=== PATIENT | male | born 1960 | race Caucasian/White ===

== ENCOUNTER → 2019-02-04 | Outpatient (CLI) | payer BC ==
[~2019-02-04] VITALS: Ht 175.3 cm; Wt 69.6 kg
[~2019-02-04] MED LIST: ADVIL LIQUI-GE200 MG PO; ALEVE220 MG PO; GLUCOSAMINE CH1 EAC7 PO; MULTIVITAMINS PO; NAPROSYN500 MG PO; NEURONTIN300 MG PO; NORCO 10-325 T1 EACH PO; ORPHENADRINE C100 M2 PO
[2019-02-04 09:31] VITALS: BP 137/85
--- NOTE | 2019-02-04 09:44 | NUR ---
Pain Clinic Assessment: 1. History of Osteoarthritis: BACK History of Rheumatoid Arthritis: 2. Height: 5 ft. 9 in. 175.3 cm. Weight: 153.5 lb. oz. 69.627 kg. Patient's BMI: 22.7 3. Vital Signs: BP: 137/85 Pulse: 82 Resp: 16 Temp: 02 Sat: 95 ECG Mon: 4. Pain Intensity: 10 5. Fall Risk: Dizziness: N Needs help standing or walking: N Fallen in the last 3 months: N Fall risk comments: 6. Patient on Blood Thinner: None 7. History of Hypertension: N 8. Opioid Therapy greater than 6 weeks: N Opiate Contract Signed: 9. Risk Assessment Tool Provided: LOW RISK 0/3 10. Functional Assessment Tool: 63/70 11. Recreational Drug Use: Never Drug Type: Tobacco Use: Never Smoker Tobacco Type: Amount or Packs/day: How Many Years: Alcohol Use: Yes Frequency: Monthly Quant: 2
--- NOTE | 2019-02-18 08:26 | HPC ---
[facility] [place] [address] PAIN MANAGEMENT CONSULTATION Name: ELDA BUENO Room #: REG [facility] Aniket#: [id number] Admission: 02/04/19 Attend Phys: Panfilo Manuel MD Discharge: Date of : 60 Report #: [id number] THIS REPORT FOR: //name// CC: Panfilo Hong DATE OF SERVICE: 02/04/2019 CHIEF COMPLAINT: Low back pain. HISTORY OF PRESENT ILLNESS: The patient is a 58-year-old gentleman who has been referred to the pain clinic for evaluation. The patient has for a number of years, had pain involving his back. He describes it as stabbing in his hip and in the lower back there is pain as well. Pain is made worse with prolonged standing or walking. Sitting improves the pain condition. He describes it as constant, stabbing and rates it today as a 10/10. On average, it is an 8/10. He states that his pain began in about 09/2016. He notes some changes in his posture and in his low back area. He has a history of spinal stenosis in the low back area. He has had laminotomy. He did try a spinal cord stimulator. He only got about 30% benefit from it. It was not felt this was sufficient pain relief to implant. Lumbar laminectomy was performed in 03/2013. He denies any bowel or bladder problems. No problems with incontinence. ALLERGIES: No known drug allergies. CURRENT MEDICATIONS: Naprosyn 220 mg q. 8 hours p.r.n., Advil 200 mg t.i.d. p.r.n., orphenadrine 100 mg, hydrocodone 10/325 one p.o. t.i.d. PAST MEDICAL HISTORY: Back pain, scoliosis. PAST SURGICAL HISTORY: Knee surgery in 2000, elbow surgery in 2003, back surgery in 2012, hernia repair 2007, and back surgery 2018. SOCIAL HISTORY: He works in sales. He is working at this juncture. REVIEW OF SYSTEMS: Generally good health, fatigue, weakness, wears glasses, otherwise unremarkable. LABORATORY DATA: CT of the lumbar spine dated 08/2018. IMPRESSION: 1. Lumbar scoliosis and chronic degenerative changes. 2. Left L2-L3 lateral recess stenosis. 3. ____ L3-L4 laminotomy with bone defect in the L3 spinous process. 4. Moderate L3-L4 spinal stenosis with right lateral recess stenosis and moderate left neural [place] [address] PAIN MANAGEMENT CONSULTATION Name: ELDA BUENO Room #: REG CLI JessicaRanjeetDorotaRanjeet#: [id number] Admission: 02/04/19 Attend Phys: Panfilo Manuel MD Discharge: Date of : 60 Report #: [id number] 5. Moderate L4-L5 spinal stenosis and right lateral recess stenosis. 6. Right L5-S1 lateral recess stenosis. 7. Myelogram on 08/12/2018. Chronic degenerative changes throughout the lumbar spine, mild scoliosis. 8. Prominent right lateral indentation of the dural sac at L3-L4 with mild anterior indentation. 9. Prominent lateral indentation of the dural sac bilaterally at L4-L5 with mild anterior indentation. 10. Mild L4-L5 spinal stenosis. 11. Anterior indentation of the dural sac at L5-S1 and reduced contrast filling of the nerve root sheath bilaterally. 12. Thoracic spine, AP, lateral. 13. Bilateral SI trigger points. PAIN CLINIC ASSESSMENT AND PQRS: 1. History of osteoarthritis. The patient has arthritic changes in his back. He is not being treated for rheumatoid arthritis. 2. Height 5 feet 9 inches, weight 153 pounds, BMI is 22.7. 3. Vital signs: Blood pressure 137/85, pulse 82, respiratory rate 16, room air saturation 95%. 4. Pain intensity 10/10. 5. Fall history: The patient has not fallen in the last 3 months. 6. Blood thinner. The patient is not being treated with blood thinning medication. 7. Hypertension. The patient is not being treated for hypertension. 8. Opioids greater than 6 weeks. The patient received medication from one source, the pain clinic or one source his primary physician. 9. Risk assessment tool, 0/3l; low for opioid use. 10. Functional assessment tool 63/70. 11. Recreational drug use. The patient denies. 12. Tobacco: The patient has never smoked. 13. Alcohol: The patient occasionally drinks about 2 alcoholic beverages monthly. PHYSICAL EXAMINATION: GENERAL: The patient is a well-developed, well-nourished white male. Appears his stated age. He is alert and oriented x 3. His affect is appropriate. Speech is fluent. HEENT: Normocephalic, atraumatic. Extraocular eye muscles intact. Sclerae nonicteric. Mucous membranes are moist. NECK: Without adenopathy or JVD. EXTREMITIES: Upper extremity muscle strength judged to be 5/5 for the major muscle groups in the upper extremity. HEART: Clear to auscultation. ABDOMEN: Nontender. MUSCULOSKELETAL: The patient has scoliosis of the spine. There is decreased [facility] [address] [place] [address] PAIN MANAGEMENT CONSULTATION Name: ELDA BUENO Room #: REG BRITTANY Marcial#: [id number] Admission: 02/04/19 Attend Phys: Panfilo Manuel MD Discharge: Date of : 60 Report #: [id number] strength in the left quad complains of some discomfort in his hips. There is change in the hip position, given patient's scoliosis. Impression: Chronic back pain with history of lumbar post-laminectomy syndrome. Back and bilateral hip pain. RECOMMENDATIONS: We discussed treatment options with the patient. The patient has some pain and discomfort in the mid back area. We discussed the treatment options with the patient. We will proceed with steroid injection into the left as well as the right SI joint areas. The patient elects to proceed. PROCEDURE NOTE: The patient was positioned on the table. His feet were perpendicular to the table. His back was then sterilely prepped with a chlorhexidine solution and allowed to dry. Trigger point was noted in the right posterior superior iliac spine area down near the lower back area. Near the buttocks. A trigger point was identified. A 25-gauge needle was then advanced into this area. The patient states that this did reproduce a component of his discomfort. Aspiration was negative. A total of 40 mg Depo-Medrol and 20 mg triamcinolone was injected into this area. This was also injected with 5 mL of 0.5% bupivacaine. The contralateral side was treated in a like fashion. Trigger point was noted in the area of the gluteus anastasia near the SI area. Trigger point was identified. A 25-gauge needle was then advanced into the area. Aspiration was negative. A total of 40 mg Depo-Medrol and 20 mg triamcinolone was injected. A 5 mL of 0.5% bupivacaine was injected. The patient remained in the pain clinic for an appropriate amount of time. He will follow up in the near future. We would like to thank you for letting us participate in his care. We hope he continues to improve. <ELECTRONICALLY SIGNED> By: Panfilo Manuel MD 02/18/19825 [id number] 23 Panfilo Manuel MD /nt
== END | disposition home or self-care (01) ==
LOC: PAIN 06:51
DX: M54.5 Low back pain (principal); M79.18 Myalgia, other site; M48.061 Spinal stenosis, lumbar region without neurogenic claudication; Z98.890 Other specified postprocedural states; Z79.891 Long term (current) use of opiate analgesic; Z79.899 Other long term (current) drug therapy

== ENCOUNTER → 2019-03-11 | Outpatient (CLI) | payer BC ==
[~2019-03-11] VITALS: Ht 175.3 cm; Wt 68.4 kg
[2019-03-11 10:16] VITALS: BP 113/80
--- NOTE | 2019-03-11 10:29 | NUR ---
Pain Clinic Assessment: 1. History of Osteoarthritis: BACK History of Rheumatoid Arthritis: 2. Height: 5 ft. 9 in. 175.3 cm. Weight: 150.8 lb. oz. 68.402 kg. Patient's BMI: 22.3 3. Vital Signs: BP: 113/80 Pulse: 77 Resp: 16 Temp: 02 Sat: 97 ECG Mon: 4. Pain Intensity: 8 AVG 5. Fall Risk: Dizziness: N Needs help standing or walking: N Fallen in the last 3 months: N Fall risk comments: 6. Patient on Blood Thinner: None 7. History of Hypertension: N 8. Opioid Therapy greater than 6 weeks: N Opiate Contract Signed: 9. Risk Assessment Tool Provided: LOW RISK 0/3 10. Functional Assessment Tool: 63/70 11. Recreational Drug Use: Never Drug Type: Tobacco Use: Never Smoker Tobacco Type: Amount or Packs/day: How Many Years: Alcohol Use: Yes Frequency: Quant:
--- NOTE | 2019-03-18 13:05 | HPC ---
[facility] [address] [place] [address] PAIN MANAGEMENT CONSULTATION Name: ELDA BUENO Room #: REG [facility] Kirby.#: [id number] Admission: 03/11/19 Attend Phys: Panfilo Manuel MD Discharge: Date of : 60 Report #: [id number] THIS REPORT FOR: //name// CC: Panfilo Hong DATE OF SERVICE: 03/11/2019 CHIEF COMPLAINT: Low back pain. It goes down into both hips and low back. HISTORY: The patient is a 58-year-old gentleman who has been followed in the pain clinic. For number of years he has had back pain. He has continued to experience pain in the low back area and has been experiencing some muscle weakness in the quadriceps area. Rates his pain today on average as an 8/10. Does have a history of spinal stenosis. He has undergone laminectomy. He was trialled on a spinal cord stimulator, only 30% benefit was achieved. He has returned today stating that he has noted improvement after the last injection, but continues to have pain, which is somewhat problematic. Pain is exacerbated with standing, walking or doing yard work. It improved somewhat with use of medications. ALLERGIES: No known drug allergies. CURRENT MEDICATIONS: Naprosyn 220 mg every 8 hours p.r.n., Advil 200 mg t.i.d. p.r.n., orphenadrine 100 mg, hydrocodone 10/325 one p.o. t.i.d. PAIN CLINIC ASSESSMENT/PQRS: 1. The patient is not being treated for rheumatoid arthritis. Does have some arthritic changes in his back. 2. Height 5 feet 9 inches, weight 150 pounds, BMI is 22.3. 3. Vital signs: Blood pressure 113/80, pulse 77, respiratory rate 16, room air saturation 97%. 4. Pain intensity 8/10. 5. Fall history: The patient has not fallen since we saw him last visit. 6. Blood thinner. The patient is not on a blood thinning medication. 7. Hypertension. The patient is not being treated for hypertension. 8. Opioids greater than 6 weeks. The patient receives medications from [facility] or his primary. 9. Risk assessment tool, low for opioid use. 10. Functional assessment tool 63/70. 11. Recreational drug use: The patient denies. 12. Tobacco: The patient does not smoke. 13. Alcohol: The patient occasionally drinks alcoholic beverages. PHYSICAL EXAMINATION: GENERAL: The patient is a well-developed, well-nourished [place] [address] PAIN MANAGEMENT CONSULTATION Name: ELDA BUENO Room #: REG [facility]#: [id number] Admission: 03/11/19 Attend Phys: Panfilo Manuel MD Discharge: Date of : 60 Report #: [id number] oriented x 3. Affect is appropriate. Speech is fluent. HEAD, EYES, EARS, NOSE, AND THROAT: Normocephalic, atraumatic. Extraocular eye muscles intact. Sclerae nonicteric. Mucous membranes are moist. NECK: Without adenopathy or JVD. Upper extremity muscle strength judged to be 5/5 for the major muscle groups in the upper extremity. HEART: Regular rate. LUNGS: Clear to auscultation. ABDOMEN: Nontender. The patient does have some scoliotic change in his back, some decreased strength in the left quadrant area. Has pain and discomfort in the lateral portion of his hips in the area near the gluteus anastasia and gluteus medius, this is on the left as well as the back area. IMPRESSION: 1. Chronic back pain. 2. History of laminectomy with post-laminectomy syndrome. 3. Bilateral hip pain. 4. Decreased muscle strength in the L3-L4 area with some decreased quad strength on the left. 5. Left knee pain. RECOMMENDATION: We discussed treatment options with the patient. The patient felt that he did glean benefit from the last injection. Still has pain, which is problematic and still rated at 8/10. He desires another injection in the back area to see if things would not continue to improve. We discussed the risks and benefits of the procedure. They include but are not limited to infection, worsening of pain, no improvement in pain, bleeding, nerve damage and the patient elects to proceed. PROCEDURE NOTE: The patient was assisted in getting on the examination table. He sat perpendicular to the table. A chair was placed under his feet for support. The patient's back was sterilely prepped in the left and right posterior superior iliac spine areas. We continued to palpate the area of the left posterior superior iliac spine area on the left near the gluteus anastasia and the latissimus dorsi was identified. A 25-gauge needle was then advanced into the area of discomfort. Aspiration was negative. The patient stated that this did reproduce a component of his pain. A total of 5 mL of 0.5% bupivacaine and 40 mg of Depo-Medrol and 20 mg of triamcinolone was injected. The patient tolerated the left side well. The patient's right side was palpated. The patient noted some pain and discomfort, which was primarily in the right low back area near the gluteus anastasia and lateral sacral area. This area was sterilely prepped with a chlorhexidine solution. A 25-gauge needle was then advanced into the area. The patient states this did reproduce his pain and discomfort. Aspiration was negative. A total of 40 mg Depo-Medrol and 20 mg of triamcinolone in conjunction with 6 mL of 0.5% bupivacaine was injected. The [address] [address] PAIN MANAGEMENT CONSULTATION Name: ELDA BUENO JOE [facility] [id number] Admission: 03/11/19 Attend Phys: Panfilo Manuel MD Discharge: Date of : 60 Report #: [id number] patient was then taken to the procedure area. He did note some weakening of his right gluteus anastasia musculature area. He was then taken to the recovery room where he remained for an appropriate amount of time. He will follow up in the future as needed. Two trigger points were injected, one on the left and the second on the right in the low back and buttocks area. We would like to thank you for letting us to participate in his care. <ELECTRONICALLY SIGNED> By: Panfilo Manuel MD 03/18/19 1305 [id number] Panfilo Manuel MD /SANDRO
== END | disposition home or self-care (01) ==
LOC: PAIN 06:52
DX: M79.18 Myalgia, other site (principal); M54.5 Low back pain; G89.29 Other chronic pain; M25.551 Pain in right hip; M25.552 Pain in left hip; M25.562 Pain in left knee; Z98.890 Other specified postprocedural states; Z79.899 Other long term (current) drug therapy; Z79.891 Long term (current) use of opiate analgesic

== ENCOUNTER → 2019-03-30 | Outpatient (CLI) | payer BC ==
[~2019-03-30] VITALS: Ht 175.3 cm; Wt 69.4 kg
[2019-03-30 13:36] VITALS: BP 126/83
--- NOTE | 2019-03-30 13:52 | NUR ---
Pain Clinic Assessment: 1. History of Osteoarthritis: BACK History of Rheumatoid Arthritis: 2. Height: 5 ft. 9 in. 175.3 cm. Weight: 153.0 lb. oz. 69.400 kg. Patient's BMI: 22.6 3. Vital Signs: BP: 126/83 Pulse: 72 Resp: 14 Temp: 02 Sat: 97 ECG Mon: 4. Pain Intensity: 6 5. Fall Risk: Dizziness: N Needs help standing or walking: Y Fallen in the last 3 months: Y Fall risk comments: 6. Patient on Blood Thinner: None 7. History of Hypertension: N 8. Opioid Therapy greater than 6 weeks: N Opiate Contract Signed: 9. Risk Assessment Tool Provided: LOW RISK 0/3 10. Functional Assessment Tool: 63/70 11. Recreational Drug Use: Never Drug Type: Tobacco Use: Never Smoker Tobacco Type: Amount or Packs/day: How Many Years: Alcohol Use: Yes Frequency: Quant:
--- NOTE | 2019-04-19 21:49 | HPC ---
[facility] [address] [place] [address] PAIN MANAGEMENT CONSULTATION Name: ELDA BUENO Room #: REG [facility] Aniket#: [id number] Admission: 03/30/19 Attend Phys: Panfilo Manuel MD Discharge: Date of : 60 Report #: [id number] THIS REPORT FOR: //name// CC: Panfilo Hong DATE OF SERVICE: 03/30/2019 CHIEF COMPLAINT: "I was climbing some stairs and I noted my quad muscle on the right side has become weaker. I am having difficulty moving my right knee." HISTORY: The patient is a 58-year-old gentleman who has been seen in the pain clinic because of chronic pain. He has had chronic pain for a number of years. He has had back surgery. States that in the past, he talked with his surgeon. He was told that he probably could expect about 30% improvement from surgery at this juncture. Does have a history of spinal stenosis. He has undergone laminectomy. After the last surgery, he did note some weakness in the quad muscle on his left side. States that he was going up some stairs recently. Noticed pain and discomfort in his right leg and thigh. Noted some increased weakness in the right thigh. He is unable to sit in a chair and fully extend his knee. Has difficulty bearing weight on that extremity. He has been walking with use of a cane. He has returned to the pain clinic for evaluation. ALLERGIES: No known drug allergies. CURRENT MEDICATIONS: Naprosyn 220 mg q. 8 hours p.r.n., Advil 200 mg t.i.d. not part Orphenadrine 100 mg, hydrocodone 10/325 one p.o. t.i.d. PAIN CLINIC ASSESSMENT AND PQRS: 1. History of osteoarthritis, has had back surgery. The patient is not being treated for rheumatoid arthritis. 2. Height 5 feet 9 inches, weight 153 pounds, BMI is 22.6. 3. Vital signs: Blood pressure 126/83, pulse 72, respiratory rate 14, room air saturation 97%. 4. Pain intensity 10/18. 5. Fall history: The patient has not fallen, but has weakness in his legs and is walking with a crutch. 6. Blood thinner. The patient is not on a blood thinning medication. 7. Hypertension. The patient is not being treated for hypertension. 8. Opioids greater than 6 weeks. The patient receives medication from one source. 9. Risk assessment tool, low for opioid use. 10. Functional assessment tool 36/. 11. Recreational drug use: The patient denies. 12. Tobacco: The patient denies. 13. Alcohol: The patient drinks alcoholic beverages. [address] [address] PAIN MANAGEMENT CONSULTATION Name: ELDA BUENO JOE Room #: REG BRITTANY Marcial#: [id number] Admission: 03/30/19 Attend Phys: Panfilo Manuel MD Discharge: Date of : 60 Report #: [id number] PHYSICAL EXAMINATION: GENERAL: The patient is a well-developed, well-nourished white male. He is alert and oriented x 3. His affect is appropriate. Speech is fluent. HEENT: Normocephalic, atraumatic. Extraocular eye muscles intact. Sclerae nonicteric. Mucous membranes are moist. NECK: Without adenopathy or JVD. HEART: Regular rate. ABDOMEN: Nontender. The patient has a well-healed scar in the lower portion of his back. Has some scoliosis of his back. MUSCULOSKELETAL: The patient has some weakness in the left quad. He is able to sit and fully extend his left leg, but there is some weakness. He has noted some muscle bulk loss since the surgery a number of years ago. He has noted now pain and discomfort in the right quadriceps. He is unable to extend his leg against gravity. He is having some discomfort or difficulty in dorsiflexing his foot. IMPRESSION: 1. Acute onset of muscle weakness involving the right lower extremity appears to be affecting the L4 dermatomal distribution. The patient is unable to extend his quad. 2. History of lumbar laminectomy and post-laminectomy syndrome. 3. Bilateral hip pain. 4. Decreased muscle strength in the L3-L4 on the left side. 5. Left knee pain. RECOMMENDATION: We discussed treatment options with the patient. At this juncture, the patient has significant problems with muscle weakness on the right hand side. He appears to maybe have had a disk issue on the right side. It appears to have occurred quickly and significantly rendering his right quadriceps muscle quite inactive. We would recommend that the patient follow up with his neurosurgeon who has done a surgery in the past. We would recommend that he go and have an MRI. He states that [facility] We would recommend he go and do research and have this done so that the radiologist can compare his past images to his new. We explained to the patient the need to have this assessed early. Long periods of time without intervention may prove problematic and such that the patient will always have paresis involving that muscle. We would like to thank you for letting us participate in his care. We hope he finds a quick solution and get a rapid recovery from his situation. <ELECTRONICALLY SIGNED> By: Panfilo Manuel MD 04/19/19 [id number] MD antonia Manrique
== END ==
LOC: PAIN 10:15
DX: M96.1 Postlaminectomy syndrome, not elsewhere classified (principal); M25.551 Pain in right hip; M25.552 Pain in left hip; M25.562 Pain in left knee; M79.10 Myalgia, unspecified site; Z79.899 Other long term (current) drug therapy

== ENCOUNTER → 2019-04-13 | Outpatient (CLI) | payer BC ==
[~2019-04-13] VITALS: Ht 175.3 cm; Wt 70.2 kg
[2019-04-13 14:06] VITALS: BP 117/92
--- NOTE | 2019-04-13 14:29 | NUR ---
Pain Clinic Assessment: 1. History of Osteoarthritis: BACK History of Rheumatoid Arthritis: 2. Height: 5 ft. 9 in. 175.3 cm. Weight: 154.8 lb. oz. 70.217 kg. Patient's BMI: 22.8 3. Vital Signs: BP: 117/92 Pulse: 80 Resp: 16 Temp: 02 Sat: 96 ECG Mon: 4. Pain Intensity: 6 5. Fall Risk: Dizziness: N Needs help standing or walking: N Fallen in the last 3 months: Y Fall risk comments: 6. Patient on Blood Thinner: None 7. History of Hypertension: N 8. Opioid Therapy greater than 6 weeks: N Opiate Contract Signed: 9. Risk Assessment Tool Provided: LOW RISK 0/3 10. Functional Assessment Tool: 63/70 11. Recreational Drug Use: Never Drug Type: Tobacco Use: Never Smoker Tobacco Type: Amount or Packs/day: How Many Years: Alcohol Use: Yes Frequency: Quant:
--- NOTE | 2019-04-27 13:08 | HPC ---
[facility] [address] [place] [address] PAIN MANAGEMENT CONSULTATION Name: ELDA BUENO Room #: REG [facility]#: [id number] Admission: 04/13/19 Attend Phys: Panfilo Manuel MD Discharge: Date of : 60 Report #: [id number] THIS REPORT FOR: //name// CC: Panfilo Hong DATE OF SERVICE: 04/13/2019 CHIEF COMPLAINT: Low back pain that goes into the right leg. The patient also has some right quad weakness. He has been using crutches. He has returned today indicating that his pain was improved after the last injection. He has noticed some problems with weakness involving the right quadriceps area. States that he saw his surgeon. At this juncture, they did not feel that surgery was needed. He has returned today with hopes of undergoing a trigger point injection to the low back area to help control the pain and discomfort, which has been experiencing. He rates his pain as 6/10 today. ALLERGIES: No known drug allergies. CURRENT MEDICATIONS: Naprosyn 220 mg q. 8 hours, Advil 200 mg t.i.d., orphenadrine 100 mg, hydrocodone 10/325 one p.o. t.i.d. PHYSICAL EXAMINATION: MUSCULOSKELETAL: The patient has pain and discomfort in lower portion of his back. Two trigger point areas were noted. This is in the left and the right posterior superior iliac areas. Palpation in these areas can reproduce pain and discomfort, which he has been experiencing. IMPRESSION: 1. Bilateral trigger points in the posterior superior iliac spine area. 2. Left L2-L3 lateral recess stenosis. 3. Moderate L4-L5 spinal stenosis. Right lateral recess stenosis. 4. Right L5-S1 lateral stenosis. 5. Myelogram 08/12/2018, chronic degenerative changes throughout the lumbar spine, mild scoliosis. 6. Prominent lateral indentation of the dural sac bilaterally at L4-L5 with anterior indentation. 7. Thoracic spine complaint anterior and lateral. RECOMMENDATIONS: We discussed treatment options with the patient. Risks and benefits of injection were discussed. They include the possibility of infection, worsening of pain, nerve damage, increased pain and no improvement in pain. The patient elects to proceed. PROCEDURE NOTE: The patient was taken to the procedure area. He was then assisted in getting on examination table. His back was sterilely prepped with a [facility] [address] [place] [address] PAIN MANAGEMENT CONSULTATION Name: MYLESELDA [place] Room #: REG [facility]an[facility]etRanjeet#: [id number] Admission: 04/13/19 Attend Phys: Panfilo Manuel MD Discharge: Date of : 60 Report #: [id number] Betadine solution and allowed to dry. The right posterior superior iliac spine near the gluteus anastasia and latissimus dorsi was identified. The patient states this did reproduce a component of his discomfort. A 25-gauge needle was then used to anesthetize the area and the trigger point was identified. Aspiration was negative. Total of 80 mg Depo-Medrol was injected with 5 mL of 0.5% bupivacaine. The contralateral left side was treated in a like fashion. This area had been sterilely prepped. A trigger point was noted in the left posterior superior iliac spine area near the gluteus anastasia and latissimus dorsi. After the trigger point was noted. A 25-gauge needle was then advanced. Aspiration was negative. Total of 80 mg Depo-Medrol was injected. A total of 5 mL of 0.5% bupivacaine was injected. The patient tolerated the procedure well. He remained in the pain clinic for an appropriate amount of time. His pain score was 0 at the time of discharge. His muscle strength as it was prior to the injection. He remained in the pain clinic for appropriate amount of time. He will follow up in the future as needed. We would like to thank you for letting us participate in his care. We hope he continues to improve. <ELECTRONICALLY SIGNED> By: Panfilo Manuel MD 04/27/19 [id number] Panfilo Manuel MD /harshal
== END | disposition home or self-care (01) ==
LOC: PAIN 07:11
DX: M79.18 Myalgia, other site (principal); M48.061 Spinal stenosis, lumbar region without neurogenic claudication; M54.5 Low back pain; Z98.890 Other specified postprocedural states; Z79.891 Long term (current) use of opiate analgesic; Z79.899 Other long term (current) drug therapy

== ENCOUNTER → 2019-05-18 | Outpatient (CLI) | payer BC ==
[~2019-05-18] VITALS: Ht 175.3 cm; Wt 70.0 kg
--- NOTE | ~2019-05-18 | HPC ---
[facility] [address] [place] [address] PAIN MANAGEMENT CONSULTATION Name: ELDA BUENO Room #: REG BRITTANY Marcial#: [id number] Admission: 05/18/19 Attend Phys: Panfilo Manuel MD Discharge: Date of : 60 Report #: [id number] THIS REPORT FOR: //name// CC: Panfilo Hong DATE OF SERVICE: 05/18/2019 CHIEF COMPLAINT: Low back pain with pain in the low back area. HISTORY: The patient is a 58-year-old gentleman who has been seen in the pain clinic because of low back pain. He has been experiencing pain down in the lower portion of his back and down into the buttocks area. Has had a history of renal stones. He returns today because of pain in the low back area. Certain areas when palpated can reproduce this pain and discomfort. He denies any new trauma. He has continued to have some weakness in his lower extremities. This involves his quadriceps. Initially after his surgery, his left quadricep was weak. He has noted some continued weakness in the right quadricep. Denies any new trauma. He has returned today for injection in the low back area. He does have some myofascial pain. Trigger point injections in the past have been beneficial and he has returned today with the hopes of undergoing injections to the affected area today. ALLERGIES: No known drug allergies. CURRENT MEDICATIONS: Naprosyn 220 mg q. 8 hours, Advil 200 mg t.i.d. p.r.n., orphenadrine 100 mg, and hydrocodone 10/325 one p.o. t.i.d. PAIN CLINIC ASSESSMENT AND PQRS: 1. History of osteoarthritis. The patient has had back surgery. 2. Height 5 feet 9 inches, weight 154 pounds, BMI is 22.9. 3. Vital signs: Blood pressure 154/89, pulse 76, respiratory rate 14, room air saturation is 100%. 4. Pain intensity /10. 5. Fall history: The patient has not fallen since we saw him last. 6. Blood thinner. The patient is not on a blood thinning medication. 7. Hypertension. The patient is not being treated for hypertension. 8. Opioids greater than 6 weeks. 9. Risk assessment tool, low for opioid use. 10. Functional assessment tool 63/70. 11. Recreational drug use: The patient denies. 12. Tobacco: The patient has never smoked. 13. Alcohol: The patient occasionally drinks alcoholic beverages. PHYSICAL EXAMINATION: GENERAL: The patient is a well-developed, well-nourished white male. Appears [place] [id number] PAIN MANAGEMENT CONSULTATION Name: ELDA BUENO Room #: REG [facility] Kirby.#: [id number] Admission: 05/18/19 Attend Phys: Panfilo Manuel MD Discharge: Date of : 60 Report #: [id number] his stated age. He is alert and oriented x 3. His affect is appropriate. Speech is fluent. HEENT: Normocephalic, atraumatic. Extraocular eye muscles intact. Sclerae nonicteric. Mucous membranes are moist. NECK: Without adenopathy or JVD. ABDOMEN: Nontender. MUSCULOSKELETAL: Upper extremity muscle strength judged to be 5/5. The patient has a well-healed scar in the lower portion of his back. Does have some asymmetry in his lumbar area with an elevation of the right iliac area greater than left. Palpation in the area of the posterior superior iliac spine on the left and right, both cause some recurrence of pain and discomfort. IMPRESSION: 1. Myofascial pain in low back area and the area of the left and right posterior superior iliac spine areas. 2. History of left L2-L3 lateral recess stenosis. 3. Moderate L4-L5 spinal stenosis, right recess stenosis. 4. Right L5-S1 lateral stenosis. 5. Myelogram ____2019 shows chronic degenerative changes throughout the lumbar spine with mild scoliosis. 6. Prominent lateral indentation of the dural sac bilaterally at L4-L5 with anterior indentation. 7. Thoracic spine complaint with anterior and lateral pain. RECOMMENDATIONS: We discussed treatment options with the patient. Risks and benefits of trigger point injection were again discussed. Possible complications of the injections, which could include infection, bleeding, trauma, no improvement in pain, exacerbation of pain and numbness have been discussed. The patient elects to proceed. PROCEDURE NOTE: The patient was assisted in getting on the examination table. His back was sterilely prepped with a chlorhexidine solution and allowed to dry. Trigger point was noted in the right posterior superior iliac spine area near the gluteus anastasia and latissimus dorsi. A 25-gauge needle was then used to anesthetize the area. Aspiration was negative. A total of 6 mL of 0.25% bupivacaine was injected with 40 mg Depo-Medrol and 20 mg triamcinolone. The contralateral side was treated in a like fashion. The trigger point was noted in the area of the latissimus dorsi and gluteus anastasia near the posterior superior iliac spine. A 25-gauge needle was then advanced to the trigger point. The patient felt that this was the area. Aspiration was negative. A total of 6 mL of 0.25% bupivacaine with 40 mg Depo-Medrol and 20 mg triamcinolone was injected. The patient tolerated the procedure well. He remained in the pain clinic for an appropriate amount of time. He will follow up in the future as needed. [facility] [address] [place] [address] PAIN MANAGEMENT CONSULTATION Name: ELDA BUENO Room #: REG CLI Aniket#: [id number] Admission: 05/18/19 Attend Phys: Panfilo Manuel MD Discharge: Date of : 60 Report #: [id number] We would like to thank you for letting us participate in his care. We hope he continues to improve. By: [id number] Panfilo Manuel MD /nt
[2019-05-18 14:49] VITALS: BP 154/89
--- NOTE | 2019-05-18 15:10 | NUR ---
Pain Clinic Assessment: 1. History of Osteoarthritis: BACK History of Rheumatoid Arthritis: 2. Height: 5 ft. 9 in. 175.3 cm. Weight: 154.4 lb. oz. 70.035 kg. Patient's BMI: 22.8 3. Vital Signs: BP: 154/89 Pulse: 76 Resp: 14 Temp: 02 Sat: 100 ECG Mon: 4. Pain Intensity: 6 5. Fall Risk: Dizziness: N Needs help standing or walking: N Fallen in the last 3 months: N Fall risk comments: 6. Patient on Blood Thinner: None 7. History of Hypertension: N 8. Opioid Therapy greater than 6 weeks: N Opiate Contract Signed: 9. Risk Assessment Tool Provided: LOW RISK 0/3 10. Functional Assessment Tool: 63/70 11. Recreational Drug Use: Never Drug Type: Tobacco Use: Never Smoker Tobacco Type: Amount or Packs/day: How Many Years: Alcohol Use: Yes Frequency: Quant:
== END | disposition home or self-care (01) ==
LOC: PAIN 06:53
DX: M79.18 Myalgia, other site (principal); M54.5 Low back pain; M48.061 Spinal stenosis, lumbar region without neurogenic claudication; Z98.890 Other specified postprocedural states; Z79.899 Other long term (current) drug therapy; Z79.891 Long term (current) use of opiate analgesic; Z87.442 Personal history of urinary calculi

== ENCOUNTER → 2019-07-29 | Outpatient (CLI) | payer BC, OTHER ==
[~2019-07-29] VITALS: Ht 172.7 cm; Wt 67.4 kg
[2019-07-29 09:41] VITALS: BP 122/72
--- NOTE | 2019-07-29 09:46 | NUR ---
Pain Clinic Assessment: 1. History of Osteoarthritis: BACK BILAT HIPS BILAT KNEES History of Rheumatoid Arthritis: 2. Height: 5 ft. 8 in. 172.7 cm. Weight: 148.6 lb. oz. 67.404 kg. Patient's BMI: 22.6 3. Vital Signs: BP: 122/72 Pulse: 81 Resp: 18 Temp: 02 Sat: 94 ECG Mon: 4. Pain Intensity: 6 5. Fall Risk: Dizziness: N Needs help standing or walking: N Fallen in the last 3 months: N Fall risk comments: 6. Patient on Blood Thinner: None 7. History of Hypertension: N 8. Opioid Therapy greater than 6 weeks: N Opiate Contract Signed: 9. Risk Assessment Tool Provided: LOW RISK 0/3 10. Functional Assessment Tool: 63/70 11. Recreational Drug Use: Never Drug Type: Tobacco Use: Never Smoker Tobacco Type: Amount or Packs/day: How Many Years: Alcohol Use: Yes Frequency: Special Occasions Quant: BEER
--- NOTE | 2019-08-05 16:39 | HPC ---
[facility] [place] [address] [address] [place] [address] PAIN MANAGEMENT CONSULTATION Name: ELDA BUENO Room #: REG BRITTANY .Dorota.#: [id number] Admission: 07/29/19 Attend Phys: Pnafilo Manuel MD Discharge: Date of : 60 Report #: [id number] THIS REPORT FOR: cc: Chip Hong,Panfilo Solis MD ~ CC: Panfilo Hong DATE OF SERVICE: 07/29/2019 CHIEF COMPLAINT: Back pain and I need hip replacements. HISTORY: The patient is a 58-year-old gentleman who has been seen in the pain clinic because of chronic pain. He has pain and discomfort in the lower portion of his back. Trigger point injections have been beneficial. He has been told that he does have some pathology in his hips. He probably needs hip replacements at some point in the future. He feels that the pain on the right side is most problematic. As you may recall, he has had back surgery before, this was in 2012. He rates his pain intensity as a 6/10 today. Pain in the mid back area near the trigger points as well as pain in the lateral side of his legs and into the hip areas. He has been impacted by the COVID-19. He is not working at this juncture. His continues to work and provide their insurance. ALLERGIES: No known drug allergies. CURRENT MEDICATIONS: Naprosyn 220 mg q.i.d., Advil 200 mg t.i.d., orphenadrine 100 mg, hydrocodone 10/325 one p.o. t.i.d. PAIN CLINIC ASSESSMENT/PQRS: 1. The patient has had back surgery. 2. Height 5 feet 9 inches, weight 148 pounds, BMI is 22.6. 3. Vital signs: Blood pressure 122/72, pulse 81, respiratory rate 18, room air saturation 94. 4. Pain intensity 6/10. 5. Fall history: The patient has not fallen in the last 3 months. 6. Blood thinner. The patient is not on a blood thinning medication. 7. Hypertension. The patient is not being treated for hypertension. 8. Opioids greater than 6 weeks. The patient is not on opioids on a regular basis. 9. Risk assessment tool, low for opioid use. 10. Functional assessment tool 63/70. 11. Recreational drug use: The patient denies. 12. Tobacco: The patient denies. 13. Alcohol: The patient occasionally drinks beer. [address] [address] PAIN MANAGEMENT CONSULTATION Name: ELDA BUENO Room #: REG [facility]#: [id number] Admission: 07/29/19 Attend Phys: Panfilo Manuel MD Discharge: Date of : 60 Report #: [id number] PHYSICAL EXAMINATION: GENERAL: The patient is a well-developed, well-nourished white male. Appears his stated age. He is alert and oriented x 3. His affect is appropriate. Speech is fluent. HEENT: Normocephalic, atraumatic. Extraocular eye muscles intact. Sclerae nonicteric. Mucous membranes are moist. NECK: Without adenopathy or JVD. CHEST: Generally clear to auscultation. The patient has a well-healed scar in the mid portion of his back down to near the area of sacrum. ABDOMEN: Nontender. EXTREMITIES: Upper extremity muscle strength judged to be 5/5 for the major muscle groups in the upper extremity. The patient has some pain and discomfort in the left as well as the right hip. The patient has trigger points in the left and right posterior superior iliac spine area in the lumbar L5-S1 paraspinal area. IMPRESSION: 1. Myofascial pain, low back area, left and right posterior superior iliac spine areas. 2. History of back surgery in 2013. 3. Myelogram in 2019 shows chronic degenerative changes throughout the lumbar spine with mild scoliosis. 4. Prominent lateral induration of the dural sac bilaterally at L4-L5 with anterior indentation. 5. Thoracic spine complaint with anterior and lateral pain. 6. Myofascial pain in the lumbar area L5-S1 with trigger points. RECOMMENDATIONS: We discussed treatment options with the patient. Risks and benefits of an injection in the low back area was discussed. Possible complications of the procedure, which could include but are not limited to infection, worsening pain, no improvement in pain, numbness, tingling and the patient elects to proceed. PROCEDURE NOTE: The patient was taken to the procedure area. He was then assisted in getting on examination table. His back was sterilely prepped with a Betadine solution and allowed to dry. The right posterior superior iliac spine area near the gluteus anastasia and latissimus dorsi was palpated. The patient stated that this did reproduce a component of his pain. A 25-gauge needle was then advanced into this area. After the trigger point area was identified. Aspiration was negative. A total of 5 mL of 0.5% bupivacaine and 80 mg of Depo-Medrol were injected into this area. The patient tolerated the right-sided injection without complication. The left side, which had been sterilely, was palpated. Palpation near the L5-S1 area and in the paraspinous area near the gluteus anastasia and latissimus dorsi was identified. Palpation in certain areas made the patient's pain more problematic. Palpation in this area of the old [facility] [address] [place] [address] PAIN MANAGEMENT CONSULTATION Name: ELDA BUENO Room #: REG CLI Dorota.#: [id number] Admission: 07/29/19 Attend Phys: Panfilo Manuel MD Discharge: Date of : 60 Report #: [id number] scar also cause some areas where the patient states when I pressed in this area he felt numbness and shooting sensation down into the lateral portion of his thigh. The trigger point area was identified. The patient was not having any pain radiating down into the thigh area. A total of 5 mL of 0.5% bupivacaine and 80 mg of Depo-Medrol were injected. The patient tolerated the procedure well. There were no complications. He remained in the pain clinic for an appropriate amount of time. Scripts for medications were provided. We would like to thank you for letting us to participate in his care. We hope he continues to improve. <ELECTRONICALLY SIGNED> By: Panfilo Manuel MD 08/05/19 1639 [id number] Panfilo Manuel MD /[facility]
== END | disposition home or self-care (01) ==
LOC: PAIN 08:47
DX: M79.18 Myalgia, other site (principal); G89.29 Other chronic pain; M54.9 Dorsalgia, unspecified; Z98.890 Other specified postprocedural states; Z79.899 Other long term (current) drug therapy

== ENCOUNTER → 2019-10-14 | Outpatient (CLI) | payer BC, OTHER ==
[~2019-10-14] VITALS: Ht 175.3 cm; Wt 67.0 kg
[~2019-10-14] MED LIST changes: +NEURONTIN600 MG PO
[2019-10-14 09:31] VITALS: BP 123/80
--- NOTE | 2019-10-14 09:37 | NUR ---
Pain Clinic Assessment: 1. History of Osteoarthritis: BACK BILAT HIPS BILAT KNEES PETER HIPS History of Rheumatoid Arthritis: NO 2. Height: 5 ft. 9 in. 175.3 cm. Weight: 147.6 lb. oz. 66.951 kg. Patient's BMI: 21.8 3. Vital Signs: BP: 123/80 Pulse: 83 Resp: 16 Temp: 02 Sat: 98 ECG Mon: 4. Pain Intensity: 7 5. Fall Risk: Dizziness: N Needs help standing or walking: N Fallen in the last 3 months: N Fall risk comments: 6. Patient on Blood Thinner: None 7. History of Hypertension: N 8. Opioid Therapy greater than 6 weeks: N Opiate Contract Signed: 9. Risk Assessment Tool Provided: LOW RISK 0/3 10. Functional Assessment Tool: 63/70 11. Recreational Drug Use: Never Drug Type: Tobacco Use: Never Smoker Tobacco Type: Amount or Packs/day: How Many Years: Alcohol Use: No Frequency: Quant:
--- NOTE | 2019-10-14 15:51 | HPC ---
[facility] [place] [address] [address] PAIN MANAGEMENT CONSULTATION Name: ELDA BUENO Room #: REG BRITTANY Orr.#: [id number] Admission: 10/14/19 Attend Phys: Panfilo Manuel MD Discharge: Date of : 60 Report #: [id number] THIS REPORT FOR: cc: Chip Hong,Panfilo Solis MD ~ CC: Panfilo Hong DATE OF SERVICE: 10/14/2019 CHIEF COMPLAINT: Low back and hip pain. HISTORY: The patient is a 58-year-old gentleman who has been followed in the Pain Clinic. As you may recall, he has been plagued with hip pain. He states that he has problems with his left and the right hip. The right hip was most problematic. This is the one that has been replaced. He is about 3 weeks out from the surgery. He has noted pain and discomfort in the low back area. In the past, he has undergone trigger point injections and found them beneficial. He would like to consider trigger point injections today. He rates his pain as a 7/10. It involves his left hip and left leg. The patient has some weakness in his left leg as well. Has some pain in his left hip. He notes pain is worse with walking, standing and yard work. The patient is unable to climb stairs at this point. He finds that hydrocodone is helpful. He takes 10 mg 4 times daily. He is also taking gabapentin. He is not having any problems with the gabapentin. He is taking about 900 mg a day. He takes one 300 mg tablet 3 times daily. ALLERGIES: No known drug allergies. CURRENT MEDICATIONS: Orphenadrine 100 mg b.i.d., ibuprofen 600 mg t.i.d., gabapentin 300 mg t.i.d., and hydrocodone 10/325 one p.o. q.i.d. PAIN CLINIC ASSESSMENT AND PQRS: 1. The patient has pain in his back. He also has pain in the hips. He is status post right hip replacement. 2. The patient is not being treated for rheumatoid arthritis. 3. Height 5 feet 9 inches, weight 147 pounds, BMI is 21.8. 4. Vital signs: Blood pressure 123/80, pulse 83, respiratory rate 16, room air saturation 98%. 5. Pain intensity 7/10. 6. Fall history: The patient has not fallen in the last month. 7. Blood thinner. The patient is not on a blood thinning medication. 8. Hypertension. The patient is not being treated for hypertension. 9. Opioids greater than 6 weeks. The patient receives medication from one source his primary physician. [address] [address] PAIN MANAGEMENT CONSULTATION Name: ELDA BUENO JOE Room #: REG CL Aniket#: [id number] Admission: 10/14/19 Attend Phys: Panfilo Manuel MD Discharge: Date of : 60 Report #: [id number] 10. Risk assessment tool, low for opioids. 11. Functional assessment tool 63/70. 12. Recreational drug use. The patient denies. 13. Tobacco: The patient has never smoked. 14. Alcohol. The patient denies frequent use of alcoholic beverages. PHYSICAL EXAMINATION: GENERAL: The patient is a well-developed, well-nourished white male. Appears his stated age. He is alert and oriented x 3. His affect is appropriate. Speech is fluent. HEENT: Normocephalic, atraumatic. Extraocular eye muscles intact. Sclerae nonicteric. Mucous membranes are moist. NECK: Without adenopathy or JVD. CHEST: Generally clear. The patient has a well-healed scar in the midline portion of his back near down to the area of sacrum. ABDOMEN: Nontender. EXTREMITIES: Upper extremity muscle strength judged to be 5/5 for the major muscle groups in the upper extremity. The patient has pain and discomfort in the lower portion of his back. Has a bit of discomfort in the left leg. Also, has pain in his right hip. The patient has some trigger point areas in the mid portion of his back. This is in the L5-S1 paraspinal area. IMPRESSION: 1. Recent replacement of a total right hip replacement. 2. Myofascial pain. 3. History of back surgery 2012. 4. Myelogram of 2019 shows degenerative changes throughout the lumbar spine with mild scoliosis. 5. Prominent lateral induration of the dural sac bilaterally at L4-L5 with anterior indentation. 6. Thoracic spine complaint with anterior and lateral pain. RECOMMENDATIONS: We discussed treatment options with the patient. The patient recently has had surgery. We explained that steroids can slow down wound healing. He states it has been about 3 weeks since he had his surgery. I would think that we would at least wait until the patient was 6-8 weeks out from his procedure. We have reviewed his insurance carrier. It appears that they will not pay for more than 4 trigger point injections during the course of the year. He has had four within that period of time. He will need to wait until his insurance carrier will allow him to undergo another injection. The patient is using hydrocodone to help with the pain. He feels that the pain still is quite problematic. He is using gabapentin. He is taking 300 mg t.i.d. We explained to the patient that sometimes patients do not notice significant improvement in the pain until they approach the 1800 mg per day. He is not having any side effects. We have written a script for the patient to use 600 mg of gabapentin t.i.d. He states that he does have 300 mg tablets at home. He will slowly [address] [address] PAIN MANAGEMENT CONSULTATION Name: ELDA BUENO Room #: REG BRITTANY Aniket#: [id number] Admission: 10/14/19 Attend Phys: Panfilo Manuel MD Discharge: Date of : 60 Report #: [id number] increase the number of pills by one additional pill per week. He will take 2 pills, one-one, 2 pills in the morning, 2 midday and 1 at night and then start 600 mg t.i.d. He will stop taking the medication if he has any problems with side effects. We would like to thank you for letting us participate in his care. The patient also continues to use nonsteroidal anti-inflammatory medication. We have explained to him that he be cognizant of medications like these oysterman on the GI tract. We would like to thank you for letting us participate in his care. We hope he continues to improve. <ELECTRONICALLY SIGNED> By: Panfilo Manuel MD 10/14/19 1551 [id number] Panfilo Manuel MD /nt
== END ==
LOC: PAIN 06:43
PROVIDERS: ATTEND Anesthesiology Pain Medicine
DX: M54.5 Low back pain (principal); M25.551 Pain in right hip; I10 Essential (primary) hypertension; F11.20 Opioid dependence, uncomplicated; Z96.641 Presence of right artificial hip joint; M79.10 Myalgia, unspecified site; Z87.39 Personal history of other diseases of the musculoskeletal system and connective tissue; Z85.79 Personal history of other malignant neoplasms of lymphoid, hematopoietic and related tissues; Z79.899 Other long term (current) drug therapy

== ENCOUNTER → 2020-07-31 | Outpatient (CLI) | payer BC, OTHER | LOC: LAB 13:42 | PROVIDERS: ATTEND Nurse Practitioner | DX: R05 Cough (principal); R06.02 Shortness of breath; Z20.822 Contact with and (suspected) exposure to COVID-19 ==

== ENCOUNTER → 2020-08-07 | Outpatient (CLI) | payer BC, OTHER | LOC: SJCVCIMAG 07:00 | PROVIDERS: ATTEND Internal Medicine | DX: I08.1 Rheumatic disorders of both mitral and tricuspid valves (principal); I27.20 Pulmonary hypertension, unspecified; I45.10 Unspecified right bundle-branch block; I49.3 Ventricular premature depolarization; R07.89 Other chest pain; I10 Essential (primary) hypertension; R06.00 Dyspnea, unspecified; R20.0 Anesthesia of skin ==

== ENCOUNTER → 2020-09-25 | Outpatient (CLI) | payer BC, OTHER | LOC: SJCVCIMAG 11:53 | PROVIDERS: ATTEND Internal Medicine | DX: I08.1 Rheumatic disorders of both mitral and tricuspid valves (principal); I42.0 Dilated cardiomyopathy; R06.00 Dyspnea, unspecified ==

== ENCOUNTER → 2020-10-02 | Outpatient (CLI) | payer BC, OTHER ==
[~2020-10-02] VITALS: Ht 175.3 cm; Wt 74.4 kg
[~2020-10-02] MED LIST changes: +CARVEDILOL12.5 MG PO; +CYMBALTA30 MG PO; +FUROSEMIDE 40 M40 MG PO; +GABAPENTIN600 M1 PO; +LIDOCAINE PAIN1 EACH TOP; +OMEPRAZOLE 20 M20 M1 PO; +PERCOCET 7.5-31 EAC1 PO
[2020-10-02 08:39] VITALS: BP 115/84
[2020-10-02 08:52] LABS: HEMATOCRIT 41.2 % (42.0-52.0); HEMOGLOBIN 12.9 gm/dL (14.0-18.0); MCH 27.9 pg (26.0-34.0); MCHC 31.2 g/dL (28.0-37.0); MCV 89.3 fL (80.0-100.0); RBC 4.61 mil/uL (4.50-6.00); RDW 21.5 % (10.5-14.5); WBC 4.1 thou/uL (4.0-11.0)
[2020-10-02 09:00] LABS: CALCIUM 8.6 mg/dL (8.5-10.1); CREATININE 1.7 mg/dL (0.7-1.3); POTASSIUM 4.6 mmol/L (3.5-5.1)
[2020-10-02 09:58] LABS: BE(vivo) -6.3 mmol/L (-2 to +3); HCO3 20.1 mmol/L (22.0-26.0); PCO2 43.2 mmHg (35.0-45.0); PO2 120.8 mmHg (80.0-100.0)
[2020-10-02 10:00] LABS: PCO2 VENOUS 54.2 mmHg (41.0-51.0); PO2 VENOUS 33.7 mmHg (35.0-45.0); pH 7.285 (7.360-7.450)
--- NOTE | 2020-10-02 11:47 | CATHLAB ---
[facility] [place] [address] INVASIVE PROCEDURE REPORT Name: ELDA BUENO Room #: PRE [facility] M..#: [id number] Admission: Attend Phys: Andrea Vizcarra MD, Discharge: Date of : 60 Report #: [id number] THIS REPORT FOR: cc: Chip Hong,Pierre Bonilla MD ~ APPROVED REPORT Study performed: 10/02/2020 09:10:05 Patient Details Patient Status: Out-Patient Room #: The patient is a 59 year-old male Event Personnel Pierre Pickard Outreach Educator, Mariangel Encinas RN RN, Matty Segura RTR Monitor, Radha Pal RTR, LAMP STACK DEVELOPER Scrub Procedures Performed Art Access - R femoral artery* Cb Access - R femoral vein Right and Left Heart Cath w/or w/o Coronarie [id number] [facility] Hemostasis with Manual pressure 15083 Initial Mod Sed Same Phys/QHP Gr5y [id number] 16071 Mod Sed Same Phys/QHP Ea [id number] Indication Dyspnea, CardiomyopathyPositive stress test Risk Factors Renal insufficiency Previous Procedures/Diagnoses Previous CHF Procedure Narrative The Right Groin^ was infiltrated with 1% Lidocaine subcutaneous anesthesia. A PINNACLE 4FR Sheath #[id number] sheath was inserted into the RFA^. Coronary angiography was performed using coronary diagnostic catheters. The right coronary system was accessed and visualized with a JR4 catheter. The left coronary system was accessed and visualized with a JL4 catheter. The left ventricle was accessed and visualized with a JR4 catheter. Left ventricular/Aortic Valve gradient assessed via catheter pullback. Hemostasis was obtained with manual pressure following sheath removal without any complications. [facility] [address] [place] [address] INVASIVE PROCEDURE REPORT Name: ELDA BUENO Room #: PRE [facility]#: [id number] Admission: Attend Phys: Andrea Vizcarra, Discharge: Date of : 60 Report #: [id number] The patient tolerated the procedure well and there were no complications associated with the procedure. There was no hematoma. This procedure included a right heart catheterization. A 7Fr [place] Sheath was inserted into the RFV, followed by a 7Fr [place] Vinay catheter. Right heart pressures followed. Intraoperative Conscious Sedation Sedation start time: 935 Case end Time: 1015 Fentanyl 100 mcg Versed 2 mg Fluoro Time: 4.11 minutes Dose: DAP 2689.80 cGycm2 290 mGy Contrast Type and Amount: Visipaque 30 ml Coronary Angiography The patient's coronary anatomy is right dominant. Diagnostic Cath Left Main The left main artery is a large-caliber vessel, appears angiographically normal. LAD The LAD is a moderate-sized caliber vessel, traverses the anterior wall and terminates at the apex. There is minimal plaquing in the midsegment. Diagonal 1 This is a small caliber vessel, appears angiographically normal. Diagonal 2 This is a small to moderate-sized caliber vessel, supplies several branches. This vessel is patent with no flow-limiting lesions. Circumflex The left circumflex artery is a moderate-sized caliber vessel, appears angiographically normal. OM1 This is a moderate-sized caliber vessel, supplies several branches as it travels the lateral wall. This vessel is patent with no flow-limiting lesions. Right Coronary The RCA is a moderate-sized caliber vessel with minimal plaquing in the midsegment. R PDA This is a moderate-sized caliber vessel, patent with no flow-limiting lesions. RPLV This is a moderate-sized caliber vessel, patent with no flow-limiting lesions. Left Ventriculography Left Ventriculography was not performed. Ejection Fraction was 15-20% based off patient's Echocardiogram. An LVEDP was measured and there is no gradient across the outflow tract. [facility] [address] [place] [address] INVASIVE PROCEDURE REPORT Name: ELDA BUENO JOE Room #: PRE [facility].#: [id number] Admission: Attend Phys: Andrea Vizcarra, Discharge: Date of : 60 Report #: [id number] Hemodynamics The right atrial mean pressure is 22 mmHg. The right ventricular pressure is 43/16 mmHg. The pulmonary artery pressure is 57/30 mmHg with a mean of 42 mmHg. The mean pulmonary capillary wedge pressure is 35 mmHg. The aortic pressure is 118/80 mmHg with a mean of 99 mmHg. The left ventricular pressure is 101/13 mmHg with a mean of mmHg. The left ventricular end diastolic pressure is 27 mmHg. Pullback from the left ventricle to the aorta revealed a mm gradient across the aortic valve. PaO2 saturation is 56.00 %. Arterial saturation is 98.00 %. The cardiac output and index were assessed using the Zachary method. The cardiac output using the Zachary method is 3.07 L/min. The cardiac index using the Zachary method is 1.62 L/min/m2. Conclusion 1. There is minimal plaquing in the LAD and RCA. 2. Severe, nonischemic dilated cardiomyopathy. 3. Right-sided cardiac pressures as described. 4. Recommend guideline directed medical therapy. <ELECTRONICALLY SIGNED> By: Pierre Pickard MD 10/02/20 1146 1146 1146 Pierre Pickard MD /INF
== END | disposition home or self-care (01) ==
LOC: CATH 07:32
PROVIDERS: Internal Medicine Cardiovascular Disease; ATTEND Internal Medicine
DX: R94.39 Abnormal result of other cardiovascular function study (principal); I25.10 Atherosclerotic heart disease of native coronary artery without angina pectoris; I42.0 Dilated cardiomyopathy; R06.00 Dyspnea, unspecified; I11.0 Hypertensive heart disease with heart failure; I50.9 Heart failure, unspecified; Z96.642 Presence of left artificial hip joint; Z98.890 Other specified postprocedural states; Z79.899 Other long term (current) drug therapy; Z82.49 Family history of ischemic heart disease and other diseases of the circulatory system